=== PATIENT | male | born 2000 | race Two or more races ===

== ENCOUNTER → 2021-01-23 | Outpatient (CLI) | payer BC, OTHER ==
[~2021-01-23] MED LIST: COVID-19 VACC, MRNA(MODERNA)/PF 100 MCG/0.5 ML VIAL IM ONE
== END | disposition home or self-care (01) ==
LOC: EDBD → VACCPMC 16:57
DX: Z23 Encounter for immunization (principal); Z20.822 Contact with and (suspected) exposure to COVID-19
CPT/HCPCS: 0011A; 91301

== ENCOUNTER → 2021-02-20 | Outpatient (CLI) | payer BC, OTHER | END | disposition home or self-care (01) | LOC: VACCPMC 09:35 | DX: Z23 Encounter for immunization (principal); Z20.822 Contact with and (suspected) exposure to COVID-19 | CPT/HCPCS: 91301 ==